=== PATIENT | female | born 1975 | race Caucasian/White ===

== ENCOUNTER 2018-09-13 12:18 | Day surgery (SDC) | payer OTHER ==
[2018-09-13 13:29] LABS: ADD MAN DIFF? NO
[2018-09-13 13:31] LABS: WHITE BLOOD COUNT 5.5 10^3/ul (4.8-10.8)
[2018-09-13 13:31] LABS: BASOPHILS % 0.7 % (0.0-2.0); EOSINOPHILS # 0.1 10^3/ul (0.0-0.5); EOSINOPHILS % 1.3 % (0.0-7.0); HEMATOCRIT 38.2 % (37.0-47.0); HEMOGLOBIN 12.6 g/dl (12.0-16.0); LYMPHOCYTES # 1.8 10^3/ul (0.8-2.9); LYMPHOCYTES % 33.6 % (15.0-51.0); MEAN CORPUSCULAR HEMOGLOBIN 29.2 pg (29.0-33.0); MEAN CORPUSCULAR VOLUME 88.6 fl (82.0-101.0); MEAN PLATELET VOLUME 10.4 fl (7.4-10.4); MONOCYTE # 0.4 10^3/ul (0.3-0.9); MONOCYTES % 6.4 % (0.0-11.0); NEUTROPHIL # 3.1 10^3/ul (1.6-7.5); NEUTROPHILS % 57.4 % (39.0-77.0); PLATELET COUNT 251 10^3/UL (140-415); RED BLOOD COUNT 4.31 10^6/ul (4.20-5.40); RED CELL DISTRIBUTION WIDTH 12.5 % (11.5-14.5)
[2018-09-13 13:50] LABS: INR 0.99; PROTIME 13.2 Sec (11.9-14.9)
[2018-09-13 13:51] LABS: PARTIAL THROMBOPLASTIN TIME 31.1 Sec (23.0-35.0)
[2018-09-13] MEDS ORDERED: PROPOFOL 20 ML (14:00)
[2018-09-13] MEDS ORDERED: ONDANSETRON 4 MG INJ (14:00)
[2018-09-13] MEDS ORDERED: DEXAMETHASONE 4 MG/ML 1 ML INJ (14:00)
[2018-09-13] MEDS ORDERED: ROCURONIUM 50 MG INJ (14:00)
[2018-09-13] MEDS ORDERED: KETOROLAC 30 MG INJ (14:00)
[2018-09-13] MEDS ORDERED: MIDAZOLAM 1 MG/ML 2 ML INJ (14:00)
[2018-09-13] MEDS ORDERED: ROPIVACAINE 0.2% 20 ML VIAL (14:00)
[2018-09-13] MEDS ORDERED: CEFAZOLIN 1 GM INJ (14:00)
[2018-09-13] MEDS ORDERED: METOCLOPRAMIDE 10 MG INJ (14:00)
[2018-09-13] MEDS ORDERED: hydrALAzine 20 MG INJ IV (14:30)
[2018-09-13] MEDS ORDERED: LABETALOL HCL 20MG INJ IV (14:30)
[2018-09-13] MEDS ORDERED: HYDROmorphONE 1 MG/5 ML IV SYRINGE IV ×3 (14:30)
[2018-09-13] MEDS ORDERED: MEPERIDINE 25 MG INJ IV (14:30)
[2018-09-13] MEDS ORDERED: CEFAZOLIN 2 GM/50 ML (PMX) 50 ML IVPB (14:30)
[2018-09-13] MEDS ORDERED: DIPHENHYDRAMINE 50 MG INJ IV (14:30)
[2018-09-13] MEDS ORDERED: FENTAnyl 50 MCG/ML VIAL IV ×2 (14:30)
[2018-09-13] MEDS ORDERED: METOCLOPRAMIDE 10 MG INJ IV (14:30)
[2018-09-13] MEDS ORDERED: EPHEDrine SULFATE 50 MG/5 ML SYG IV (14:30)
[2018-09-13] MEDS ORDERED: EPHEDrine SULFATE 50 MG/5 ML SYG (14:48)
[2018-09-13 14:56] LABS: ALANINE AMINOTRANSFERASE 21 IU/L (13-69); ALBUMIN 4.3 g/dl (3.3-4.9); ALBUMIN/GLOBULIN RATIO 1.48; ALKALINE PHOSPHATASE 75 IU/L (42-121); ANION GAP 8 (5-13); ASPARTATE AMINO TRANSFERASE 19 IU/L (15-46); BILIRUBIN,INDIRECT 0.9 mg/dl (0-1.1); BILIRUBIN,TOTAL 0.9 mg/dl (0.2-1.3); BLOOD UREA NITROGEN 13 mg/dl (7-20); CALCIUM 9.2 mg/dl (8.4-10.2); CARBON DIOXIDE 30 mmol/L (21-31); CHLORIDE 102 mmol/L (97-110); CREATININE 0.49 mg/dl (0.44-1.00); Estimated GFR > 60 mL/min (>60); GLUCOSE 93 mg/dl (70-220); POTASSIUM 4.6 mmol/L (3.5-5.1); SODIUM 140 mmol/L (135-144); TOTAL PROTEIN 7.2 g/dl (6.1-8.1)
[2018-09-13] MEDS ORDERED: GLYCOPYRROLATE 0.4 MG INJ (15:10)
[2018-09-13] MEDS ORDERED: NEOSTIGMINE 3 MG/3 ML SYRINGE (15:10)
[2018-09-13] MEDS ORDERED: HYDROCODONE/APAP (5/325) TAB PO (15:30)
[2018-09-13] MEDS: FENTAnyl 50 MCG/ML VIAL IV ×2 (15:46→16:00)
[2018-09-13] MEDS: ONDANSETRON 4 MG INJ IV (15:46)
[2018-09-13] MEDS: SOD CHLORIDE 0.9% 1,000 ML IV (16:01)
[2018-09-13] MEDS: OXYCODONE/ACETAMINOPHEN (5/325) TAB PO (16:10)
== END 2018-09-13 17:54 | disposition home or self-care (01) ==
LOC: SDS 12:18
DX: K80.20 Calculus of gallbladder without cholecystitis without obstruction (principal)
CPT/HCPCS: 47562; 80053; 85025; 85610; 85730; 88304